=== PATIENT | female | born 1980 | race Hispanic/Latino ===

== ENCOUNTER → 2019-07-13 09:11 | Outpatient (CLI) | payer MEDICAID, SELFPAY ==
[2019-07-13 10:39] LABS: Appearance Urine UA CLEAR; Bilirubin Urine UA NEGATIVE (NEGATIVE); Color Urine UA YELLOW; Glucose Urine UA NEGATIVE (Negative); Ketones Urine UA NEGATIVE (NEGATIVE); Leukocyte Esterase Urine UA NEGATIVE (NEGATIVE); Nitrite Urine UA NEGATIVE (Negative); Occult Blood Urine UA 2+ (Negative); Protein Urine UA NEGATIVE (Negative); Specific Gravity Urine UA 1.015 (1.000-1.035); Urobilinogen Urine UA 0.2 E.U./dL (0.2)
[2019-07-13 10:44] LABS: Add Manual Diff / Slide Review NO; Basophils Absolute Auto 0 /uL (0-100); Basophils Percent Auto 0.3 % (0-2); Eosinophils Absolute Auto 0 /uL (0-450); Eosinophils Percent Auto 0.8 % (2-4); Hematocrit 37.8 % (36-46); Hemoglobin 12.9 g/dL (12.0-16.0); Lymphocytes Absolute Auto 1000 /uL (1100-4500); Lymphocytes Percent Auto 18.1 % (25-40); Mean Corpuscular HGB Conc 34.1 % (30-36); Mean Corpuscular Hemoglobin 29.6 PG (26-34); Mean Corpuscular Volume 86.6 fL (80-100); Monocytes Absolute Auto 300 /uL (0-900); Neutrophils Absolute Auto 4200 /uL (1500-7000); Neutrophils Percent Auto 74.8 % (50-75); Platelet Count 187 X10^3/uL (150-400); Red Blood Cell Count 4.36 X10^6/uL (4.0-5.2); Red Cell Distribution Width 14.2 % (11.6-14.8); White Blood Cell Count 5.6 X10^3/uL (4.5-11.0)
[2019-07-13 11:02] LABS: Glucose 120 mg/dL (70-100)
[2019-07-13 11:16] LABS: Bacteria Urine Few (2-10); RBC Urine 1-5/HPF (0-5/HPF); Squamous Epithelial Cell Urine 1-5 /HPF (0-5/HPF); WBC Urine 1-5/HPF (0-5/HPF)
[2019-07-13 11:17] LABS: Culture Indicated Urine Cult Not Indicated; Hemoglobin A1C% w Est Avg Glu 6.4 % (4.0-6.0)
[2019-07-13 11:51] LABS: Hepatitis B Surface Antigen NEGATIVE s/c (NEGATIVE)
[2019-07-13 12:07] LABS: HIV 1 & 2 Ab/Ag 4th Gen Combo NEGATIVE (NEGATIVE); Hep C Virus Ab w/Reflex Quant NEGATIVE s/c (NEGATIVE)
[2019-07-15 20:01] LABS: RPR Screen Nonreactive (Nonreactive)
[2019-07-17 13:54] LABS: HSV 1 IgM Screen Negative (Negative); HSV 2 IgM Screen Negative (Negative)
[2019-07-17 15:13] LABS: Varicella IgG Antibody < 135.00 Index (< 135.00)
== END ==
DX: Z34.81 Encounter for supervision of other normal pregnancy, first trimester (principal)
CPT/HCPCS: 36415; 80055; 81003; 81015; 82947; 83036; 86695; 86696; 86787; 86803; 86850; 86900; 86901; 87086; 87389

== ENCOUNTER → 2019-09-06 11:26 | Outpatient (CLI) | payer MEDICAID, SELFPAY ==
[2019-09-13 16:54] LABS: AFP, Serum 33.1 ng/mL; Calc Gestational Age 17.7; Cigarette Smoker N; Donated Egg N; Donor Egg Age NOT GIVEN; Estriol, Free 1.38 ng/mL; Inhibin A, Dimeric 122 pg/mL; Inhibin A, MoM 0.94; Maternal Ethnicity HISPANIC; Maternal Weight 240 lbs; Number of Fetuses 1; Previous Pregnancy Down Syndro NOT GIVEN; hCG, MoM 1.75; hCG, Serum 35.5 IU/mL
== END ==
DX: O09.522 Supervision of elderly multigravida, second trimester (principal); Z3A.17 17 weeks gestation of pregnancy; Z36.0 Encounter for antenatal screening for chromosomal anomalies
CPT/HCPCS: 36415; 81420; 82105; 82677; 84702; 86336

== ENCOUNTER → 2019-11-12 11:13 | Outpatient (CLI) | payer MEDICAID, SELFPAY ==
[2019-11-12 11:51] LABS: Hemoglobin 10.8 g/dL (12.0-16.0)
[2019-11-12 12:02] LABS: Hemoglobin A1C% w Est Avg Glu 5.4 % (4.0-6.0)
== END ==
PROVIDERS: Referring Provider Specialist; Visit Provider Specialist
DX: O24.410 Gestational diabetes mellitus in pregnancy, diet controlled (principal); Z3A.27 27 weeks gestation of pregnancy
CPT/HCPCS: 36415; 83036; 85014; 85018

== ENCOUNTER → 2019-12-10 10:21 | Outpatient (CLI) | payer MEDICAID, SELFPAY ==
[2019-12-10 12:19] LABS: Hemoglobin 9.3 g/dL (12.0-16.0)
[2019-12-10 12:49] LABS: GTT (PREG) 1 Hour PP 50gm Dose 232 mg/dL (76-139)
== END ==
DX: Z34.83 Encounter for supervision of other normal pregnancy, third trimester (principal); Z3A.31 31 weeks gestation of pregnancy
CPT/HCPCS: 36415; 82950; 85014; 85018

== ENCOUNTER 2019-12-21 09:01 | Outpatient (CLI) | payer MEDICAID, SELFPAY | END 2019-12-21 10:11 | disposition home or self-care (01) | LOC: OB 12-25 11:35 | DX: O24.415 Gestational diabetes mellitus in pregnancy, controlled by oral hypoglycemic drugs (principal); O09.523 Supervision of elderly multigravida, third trimester; Z3A.33 33 weeks gestation of pregnancy | CPT/HCPCS: 59025; G0378; G0379 ==

== ENCOUNTER 2019-12-28 08:51 | Outpatient (CLI) | payer MEDICAID, SELFPAY | END 2019-12-28 10:00 | disposition home or self-care (01) | LOC: LABOR 09:10 → OB 01-01 12:34 | DX: O24.415 Gestational diabetes mellitus in pregnancy, controlled by oral hypoglycemic drugs (principal); Z3A.34 34 weeks gestation of pregnancy; O09.523 Supervision of elderly multigravida, third trimester | CPT/HCPCS: 59025; G0378; G0379 ==

== ENCOUNTER 2020-01-04 08:55 | Outpatient (CLI) | payer MEDICAID, SELFPAY | END 2020-01-04 09:35 | disposition home or self-care (01) | LOC: LABOR 09:24 → OB 01-08 07:38 | DX: O24.419 Gestational diabetes mellitus in pregnancy, unspecified control (principal); O09.523 Supervision of elderly multigravida, third trimester; Z3A.35 35 weeks gestation of pregnancy | CPT/HCPCS: 59025; G0378; G0379 ==

== ENCOUNTER → 2020-01-09 10:26 | Outpatient (CLI) | payer MEDICAID, SELFPAY ==
[2020-01-12 14:57] LABS: Strep Grp B PCR NEG for Grp B Strep
== END ==
PROVIDERS: Visit Provider Obstetrics & Gynecology
DX: Z34.83 Encounter for supervision of other normal pregnancy, third trimester (principal); Z3A.35 35 weeks gestation of pregnancy
CPT/HCPCS: 87653

== ENCOUNTER 2020-01-11 09:07 | Outpatient (CLI) | payer MEDICAID, SELFPAY ==
--- NOTE | 2020-01-11 10:12 | PM.OBTRLD ---
Visit Information Visit Information Date of evaluation: 01/11/20 Primary OB Provider: Jorje Tolentino On-call OB Provider: Ne Hernandez Reason for Evaluation: Yes non-stress test Comments/Additional reasons for admission: Patient is a GDMA2 on metformin @35+6 presenting for NST after clinic visit. 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) Surgical History History of cholecystectomy (Acute) Status post delivery (07/09/16) Social History marital status: number of children: 2 education level: elementary school occupational status: employed Previous occupational history: Housekeeping per 2016 [employer]: [employer] Smoking Status: Never smoker second hand exposure: No alcohol intake: never substance use type: does not use Evaluation Evaluation Baseline heart rate: 120 Variability: Average (6-10) monitor accelerations: Present monitor decelerations: Absent Category of Tracing: I Diagnosis, Plan/Disposition Plan/Disposition Plan: Home with scheduled follow up. OB Disposition: home
== END 2020-01-11 10:48 | disposition home or self-care (01) ==
LOC: LABOR 10:09 → OB 01-14 14:05
PROVIDERS: Referring Provider Obstetrics & Gynecology; Visit Provider Obstetrics & Gynecology
DX: O24.415 Gestational diabetes mellitus in pregnancy, controlled by oral hypoglycemic drugs (principal); O09.523 Supervision of elderly multigravida, third trimester; Z3A.36 36 weeks gestation of pregnancy
CPT/HCPCS: 59025; G0378; G0379

== ENCOUNTER 2020-01-18 10:48 | Outpatient (CLI) | payer MEDICAID, SELFPAY | END 2020-01-18 11:30 | disposition home or self-care (01) | LOC: LABOR 11:46 → OB 01-21 11:33 | DX: O24.415 Gestational diabetes mellitus in pregnancy, controlled by oral hypoglycemic drugs (principal); O09.523 Supervision of elderly multigravida, third trimester; Z3A.37 37 weeks gestation of pregnancy | CPT/HCPCS: 59025; G0378; G0379 ==

== ENCOUNTER 2020-01-25 11:22 | Outpatient (CLI) | payer MEDICAID, SELFPAY | END 2020-01-25 12:28 | disposition home or self-care (01) | LOC: LABOR 12:52 → OB 01-28 15:24 | DX: O24.419 Gestational diabetes mellitus in pregnancy, unspecified control (principal); O09.523 Supervision of elderly multigravida, third trimester; Z3A.38 38 weeks gestation of pregnancy | CPT/HCPCS: 59025; G0378; G0379 ==

== ENCOUNTER 2020-02-01 11:01 | Outpatient (CLI) | payer MEDICAID, SELFPAY | END 2020-02-01 12:07 | disposition home or self-care (01) | LOC: LABOR 11:26 → OB 02-04 10:45 | DX: O24.419 Gestational diabetes mellitus in pregnancy, unspecified control (principal); O09.523 Supervision of elderly multigravida, third trimester; Z3A.39 39 weeks gestation of pregnancy; Z11.59 Encounter for screening for other viral diseases; Z01.812 Encounter for preprocedural laboratory examination | CPT/HCPCS: 59025; 87635; G0378; G0379 ==

== ENCOUNTER → 2020-02-01 14:02 | Outpatient (CLI) | payer MEDICAID, SELFPAY ==
[2020-02-02 00:33] LABS: COVID19 Sendout Not Detected (Not Detect)
== END ==
PROVIDERS: Visit Provider Nurse Practitioner
DX: Z01.812 Encounter for preprocedural laboratory examination (principal)
CPT/HCPCS: 87635

== ENCOUNTER 2020-02-04 09:06 | Inpatient (IN) | payer MEDICAID, SELFPAY ==
[2020-02-04] VITALS (11 sets, daily range): BP systolic 88–113; BP diastolic 30–58; PULSE 63–76; RESP 10–14; TEMP 36.1–36.2; O2SAT 98–100
--- NOTE | 2020-02-04 07:47 | PM.PREOP ---
Pre-operative Note COVID-19 COVID-19 status: Negative Result date/Date tested (Pos, Neg/Pending): 02/01/20 Interval Note History & Physical reviewed/Exam performed by Physician: Yes Changes to H&P: No ASA Class (for procedural sedation): II
[2020-02-04] MEDS: LACTATED RINGERS 1,000 ML 100 ML IV ×4 (10:00→13:25)
[2020-02-04 10:34] LABS: Add Manual Diff / Slide Review NO; Basophils Absolute Auto 0 /uL (0-100); Basophils Percent Auto 0.2 % (0-2); Eosinophils Absolute Auto 0 /uL (0-450); Eosinophils Percent Auto 0.2 % (2-4); Hematocrit 30.3 % (36-46); Hemoglobin 9.8 g/dL (12.0-16.0); Lymphocytes Absolute Auto 800 /uL (1100-4500); Lymphocytes Percent Auto 11.9 % (25-40); Mean Corpuscular HGB Conc 32.3 % (30-36); Mean Corpuscular Hemoglobin 26.9 PG (26-34); Mean Corpuscular Volume 83.3 fL (80-100); Monocytes Absolute Auto 400 /uL (0-900); Monocytes Percent Auto 5.4 % (3-14); Neutrophils Absolute Auto 5800 /uL (1500-7000); Neutrophils Percent Auto 82.3 % (50-75); Platelet Count 194 X10^3/uL (150-400); Red Blood Cell Count 3.64 X10^6/uL (4.0-5.2); Red Cell Distribution Width 17.7 % (11.6-14.8)
[2020-02-04] MEDS: CEFOTETAN 2 GM/50 ML PIGGYBACK IV (11:14)
--- NOTE | 2020-02-04 11:47 | SUR.OPER ---
Supine on Padded OR bed, head on pillow, safety belt at thigh, arms secured on padded arm boards at <90 degrees abduction. Bump under right buttock. Legs uncrossed with pillow under knees, gel pad to heels, tape over blanket to lower legs.
--- NOTE | 2020-02-04 12:04 | P.OP_ITS ---
Operative Date/Time/Diagnoses Date of procedure: 02/04/20 Time of procedure: 12:05 Pre-op diagnosis: term intrauterine History of prior section Morbid obesity Post-op diagnosis: same Procedure & Clinicians Procedure: Procedures Operation Date: 02/04/20 11:15 Actual Procedures Side Surgeon p Repeat Section Jorje Tolentino MD Indications: term intrauterine History of prior section Morbid obesity General Ophthalmologist: Ne Hernandez Anesthesia Type: Spinal Operative Notes Findings: large number of adhesions Nondescript bladder flap Normal tubes and ovary Live-born female Closure Type: primary Specimen(s): none Estimated blood loss (mL): 500 Blood products transfused: none Procedure in detail: the patient was placed supine upon the operating table and then in a sitting position spinal anesthesia was administered. The patient was placed back in the supine position and the roll was placed return the patient to the left. The tape was then used to elevate the panniculus. The patient was th en draped and prepared in the usual fashion. Transverse incision was made through the old scar and subcutaneous tissue incised to the fascia. Fascia was incised with a sharp knife transversely in each direction. The perineum was picked up and incised and widened by blunt finger dissection. Bladder blade was set in place. There was no true bladder flap. The bladder was taken down sharply. Bladder blade was replaced. A transverse scoring incision was made across the lower uterine segment. The membranes protruded and vertex was palpated. Pressure on the abdomen membranes are ruptured the fluid was clear. A live born female infant with scores are nine at 1 minutes and nine at 5 minutes was delivered without difficulty. Cord had three vessels. Cord was clamped and cord blood was obtained. Placenta was removed manually. All membranes were carefully removed from the uterine cavity. The uterus was exteriorized. Uterine incision was closed in imbricating fashion using a two layer technique with 1. Chromic suture. No bleeding points were seen. There was no bladder flap to approximate period perineum was closed transversely with a running three 0 Vicryl suture. Area was copiously irrigated. All bleeding points were seen tubes and ovaries had previously been identified and were normal. The fascia was then closed with two continuous 1. Vicryl sutures. The area was then copiously irrigated once again. The wound came nicely together with good approximation. 3 interrupted three 0 Vicryl sutures were placed to close space. The skin incision was closed with a Monocryl suture using a Hadley needle. No bleeding points were seen. An Aquacel dressing was placed. The urine was clear at the end of the procedure. Patient was taken to the recovery room in satisfactory condition. Complications: none Post-operative Condition: stable Disposition: PACU Plan for aftercare: Routine aftercare
[2020-02-04] MEDS: diphenhydrAMINE 50 MG/ML VIAL 25 MG IV (12:35)
--- NOTE | 2020-02-04 12:37 | SUR.PHASEI ---
Patient c/o itching, medicated for itching.
--- NOTE | 2020-02-04 12:48 | SUR.PHASEI ---
Discussed bp with Dr. Mitchell-102/39. VVO to finish IV bag. IV fluids infusing without difficulty.
--- NOTE | 2020-02-04 12:52 | SUR.PHASEI ---
Report called to Laurel
--- NOTE | 2020-02-04 12:56 | SUR.PHASEI ---
Patient reported itching improved
--- NOTE | 2020-02-04 13:23 | SUR.PHASEI ---
Patient transferred to the center. Report given to Laurel. VS stable. Fundus and bleeding checked with RN. IV patent, bolus finishing. Lara patent with clear, light yellow fluid.
[2020-02-04] MEDS: ONDANSETRON 4 MG/2 ML INJ IV (17:40)
[2020-02-04] MEDS: KETOROLAC 30 MG/ML VIAL IV ×2 (17:42→23:45)
[2020-02-05] MEDS: KETOROLAC 30 MG/ML VIAL IV (06:38)
[2020-02-05] MEDS: OXYCODONE IR 10 MG TABLET PO ×3 (06:39→20:56)
--- NOTE | 2020-02-05 08:45 | PM.OBPN.1 ---
Subjective - OB Subjective Patient comments: no complaints [place] baby status: doing well [place] feeding status: exclusively breast feeding Narrative: Patient approximately 24 hours post elective repeat section and doing well Date Patient Seen: 02/05/20 Time Patient Seen: 08:45 Interval history: Patient is a 39-year-old status post elective repeat section and doing well. She is afebrile with stable vital signs. Her Lara is out. She is voiding in good von. She is ambulating. She is taking p.o. well. Exam Vital Signs (past 8 hours): Oxygen Delivery Method Room Air Narrative Exam Narrative: Fundus virtually impossible to palpate. Incision looks okay the covered with an Aquacel dressing and patient has a large panniculus Objective Labs Result Diagrams: 02/04/20 10:20 Labs: Laboratory Results - last 24 hr 02/04/20 02/04/20 10:20 10:20 WBC 7.0 RBC 3.64 L Hgb 9.8 L Hct 30.3 L MCV 83.3 MCH 26.9 MCHC 32.3 RDW 17.7 H Plt Count 194 Neut % (Auto) 82.3 H Lymph % (Auto) 11.[address] [place] % (Auto) 5.4 Eos % (Auto) 0.2 L Baso % (Auto) 0.2 Neut # (Auto) 5800 Lymph # (Auto) [address] [place] # (Auto) 400 Eos # (Auto) 0 Baso # (Auto) 0 Blood Type O Positive Antibody Screen Negative Assessment & Plan Plan day: 1 plan OB: routine postop care Time Spent With Patient Time: Total time spent is greater than 50% in coordination of care (as documented) at patient's floor/unit and/or counseling patient: Time with patient: less than 15 minutes
[2020-02-05] MEDS: FERROUS GLUCONATE 324 MG TABLET PO (10:35)
[2020-02-05] MEDS: PRENATAL VIT,CALC/IRON/FOLIC 1 TABLET 1 TAB PO (10:35)
[2020-02-05] MEDS: DOCUSATE 250 MG CAPSULE PO (10:36)
[2020-02-05] MEDS: IBUPROFEN 600 MG TABLET PO ×2 (16:08→23:59)
[2020-02-06] MEDS: OXYCODONE IR 10 MG TABLET PO ×2 (02:44→08:20)
--- NOTE | 2020-02-06 08:16 | P.DS_ITS ---
Discharge Providers Provider Date of admission: 02/04/20 09:06 Discharge Date: 02/06/20 Primary care physician: Jorje Tolentino MD Consults: 02/05/20 17:12 Consult to [facility] Routine Comment: Discharge provider: Jorje Tolentino MD Summary Hospital Course Date Patient Seen: 02/06/20 Time Patient Seen: 08:16 Procedures: Repeat low segment section Spinal anesthesia Hospital Course: The patient is a 39-year-old who presented at term for repeat low segment section. The operation was performed without difficulty. And there was minimal blood loss at time of surgery. She was delivered of a live-born female with good scores. she has done well. She remains afebrile stable vital signs she has been progressively ambulated. She is taking p.o. well. She is voiding in good volumes. Her IVs have been discontinued. Peripartum Data Infant Delivery Method: Section complications: none Status at Discharge Cognitive/behavioral status at discharge: oriented Functional status at discharge: independent ambulation Overall status at discharge: patient is progressing back to baseline Time Spent with Patient Time attestation: Total time spent providing and/or coordinating discharge services: Time spent: Less than 30 minutes Objective Labs Result Diagrams: 02/05/20 08:55 Labs: Laboratory Results - last 24 hr 02/05/20 08:55 Hct 24.0 L Exam Vital Signs (past 8 hours): Oxygen Delivery Method Room Air Narrative Exam Narrative: Patient with large panniculus Aquacel dressing is in place and there is some discoloration but the patient is had not any extensive bleeding. Lochia scant. Discharge Plan Discharge Plan Patient Disposition: Home Discharge orders & Medications Prescriptions: New ibuprofen 600 mg Tablet 600 mg PO Q6HR PRN (Reason: Fever/Mild Pain (1-3)) Qty: 20 RF: 0 docusate sodium 250 mg Capsule 250 mg PO DAILY Qty: 14 RF: 0 Gsk-Z-Imktiy Cream 1 applic topical PRN PRN (Reason: ) Qty: 1 RF: 0 ferrous gluconate 324 mg (38 mg iron) Tablet 324 mg PO DAILY Qty: 30 RF: 0 oxycodone 10 mg Tablet 10 mg PO Q4HR PRN (Reason: Pain, Severe (7-10)) Qty: 10 RF: 0 Prenatabs Rx 29 mg iron- 1 mg Tablet 1 tab PO DAILY Qty: 30 RF: 0 Discontinued Glucose: Home Monitor 0 dev SEE INSTRUCTIONS Qty: 1 RF: 0 metformin 500 mg tablet 500 mg PO DAILY Qty: 120 RF: 3 prenat.vits,janice,ejf-blbo-rntay Tablet 1 tab PO DAILY Qty: 60 RF: 5 ferrous sulfate 325 mg (65 mg iron) tablet,delayed release (DR/EC) 325 mg PO DAILY Qty: 30 RF: 5 fluconazole 150 mg tablet 150 mg PO Q72H Qty: 2 RF: 0 Follow up/Referrals: Jorje Tolentino MD [Primary Care Provider] - Discharge Health Status Multidrug resistant organism: No MDRO Diet/Activity/Treatments Diet: Diet as Tolerated Activity: Up ad karina No stair Skin/Wound/Dressing Care Skin care: Keep under area panniculus clean dry Report to your healthcare provider any signs of infection, such as:: chills, fever, increased pain, unusual drainage and unusual redness Dressing: Aquacel dressing to be removed in one week Visit Report/Discharge Packet Instructions: DI for Prescription Opioid Use Discharge Data Primary Care Provider: Jorje Tolentino
[2020-02-06] MEDS: LANOLIN OINT 7 GM 1 APPLIC TOP (08:18)
[2020-02-06] MEDS: DOCUSATE 250 MG CAPSULE PO (08:18)
[2020-02-06] MEDS: PRENATAL VIT,CALC/IRON/FOLIC 1 TABLET 1 TAB PO (08:19)
[2020-02-06] MEDS: IBUPROFEN 600 MG TABLET PO (08:19)
[2020-02-06 10:31] VITALS: BP 109/64; PULSE 83; RESP 18; TEMP 37.1
== END 2020-02-06 12:35 | disposition home or self-care (01) | DRG 787 ==
PROC: 10D00Z1 Extraction of Products of Conception, Low, Open Approach (ICD-10-PCS; CPT 59514; principal; 2020-02-04 11:15)
DX: O34.219 Maternal care for unspecified type scar from previous cesarean delivery (principal); O98.32 Other infections with a predominantly sexual mode of transmission complicating childbirth; O24.92 Unspecified diabetes mellitus in childbirth; B00.9 Herpesviral infection, unspecified; Z3A.39 39 weeks gestation of pregnancy; Z37.0 Single live birth; E66.01 Morbid (severe) obesity due to excess calories; Z79.84 Long term (current) use of oral hypoglycemic drugs
CPT/HCPCS: 36415; 59050; 59514; 59515; 85014; 85025; 86850; 86900; 86901; J1200; J1885; J2274; J2405; J2590; J3010